=== PATIENT | female | born 1980 | race African-American/Black ===

== ENCOUNTER 2016-07-20 15:46 | Emergency (ER) | payer SELFPAY ==
--- NOTE | 2016-07-20 15:54 | ER Document Report ---
ED Medical Screen (RME) - General Stated Complaint: HEAVEY VAGINAL BLEEDING Time seen by provider: 15:50 Mode of Arrival: Ambulatory Information source: Patient Notes: 36-year-old female presents to ED for hemoglobin of 6.6 at the doctor with heavy vaginal bleeding. [facility] and possible blood transfusion. 3 vaginal bleeding started yesterday she states she's changing a pad about one an hour. She states that the heavy bleeding every month as been going on for couple years. She said days tried the Depo-Provera and it did not work. I have greeted and performed a rapid initial assessment of this patient. A comprehensive ED assessment and evaluation of the patient, analysis of test results and completion of medical decision making process will be conducted by an additional ED providers. TRAVEL OUTSIDE OF THE [place] IN LAST 30 DAYS: No - Related Data Allergies/Adverse Reactions: No Known Allergies Allergy (Verified 07/20/16 15:51) Past Medical History Past Surgical History: Reports: Hx Tonsillectomy, Hx Tubal Ligation - Immunizations Hx Diphtheria, Pertussis, Tetanus Vaccination: Yes
[2016-07-20 16:45] LABS: ABSOLUTE EOSINOPHILS # (AUTO) 0.2 10^3/uL (0.0-0.6); ABSOLUTE LYMPHOCYTES (AUTO) 1.5 10^3/uL (0.5-4.7); ABSOLUTE MONOCYTES (AUTO) 0.5 10^3/uL (0.1-1.4); ABSOLUTE NEUT (AUTO) 2.3 10^3/uL (1.7-8.2); BASOPHILS % (AUTO) 0.7 % (0-2); HEMATOCRIT 24.9 % (36.0-47.0); HGB HCT DIFFERENCE -2.4; LYMPHOCYTES % (AUTO) 33.4 % (13-45); RED BLOOD COUNT 3.94 10^6/uL (3.72-5.28); RED CELL DISTRIBUTION WIDTH 19.5 % (11.5-14.0); SEGMENTED NEUTROPHILS % (AUTO) 50.9 % (42-78); WHITE BLOOD COUNT 4.6 10^3/uL (4.0-10.5)
[2016-07-20 16:50] LABS: ALANINE AMINOTRANSFERASE 23 U/L (9-52); ALBUMIN 4.1 g/dL (3.5-5.0); ALKALINE PHOSPHATASE 77 U/L (38-126); ANION GAP 8 (5-19); ASPARTATE AMINO TRANSFERASE 19 U/L (14-36); BILIRUBIN,TOTAL 0.4 mg/dL (0.2-1.3); BLOOD UREA NITROGEN 13 mg/dL (7-20); CARBON DIOXIDE 24 mmol/L (22-30); CHLORIDE 110 mmol/L (98-107); CREATININE RESULT 0.66 mg/dL (0.52-1.25); GLUCOSE 92 mg/dL (75-110); SODIUM 142.4 mmol/L (137-145); TOTAL PROTEIN 7.5 g/dL (6.3-8.2)
[2016-07-20 17:00] LABS: HEMOGLOBIN 7.5 g/dL (12.0-15.5)
[2016-07-20 17:01] LABS: MEAN CORPUSCULAR VOLUME 63 fl (80-97)
[2016-07-20 17:06] LABS: FREE T3 3.43 pg/mL (2.77-5.27)
[2016-07-20 17:07] LABS: ANISOCYTOSIS 2+; HYPOCHROMASIA 1+; MICROCYTOSIS 3+; OVALOCYTES 1+; POIKILOCYTOSIS 1+; POLYCHROMASIA SLIGHT; SCHISTOCYTES 1+
[2016-07-20 17:08] LABS: ROULEAUX SLIGHT; TEAR DROP CELLS SLIGHT
[2016-07-20] MEDS ORDERED: ESTROGENS,CONJUGATED 25 MG VIAL IV ONE (17:19)
[2016-07-20 17:20] LABS: THYROID STIMULATING HORMONE 1.42 uIU/mL (0.47-4.68)
[2016-07-20 17:39] LABS: PROTHROMBIN TIME 13.3 SEC (11.4-15.4)
[2016-07-20] MEDS ORDERED: NORMAL SALINE 1000 ML 1,000 ML IV ONE (18:02)
--- NOTE | 2016-07-20 18:30 | ER Document Report ---
ED General - General Chief Complaint: Vaginal Bleeding Stated Complaint: VAGINAL BLEEDING Time seen by provider: 17:00 Mode of Arrival: Ambulatory Information source: Patient Notes: 36-year-old female with long history of heavy vaginal bleeding with her periods. Patient is been followed by Dr. Murdock of [employer] [facility] [facility] for this and because of typically bad episode beginning last night was seen in the office today. Hemoglobin at office was 6.6 but staff there are concerns that might be not be accurate. She was referred to the emergency department further evaluation and recheck of hemoglobin with further treatment inpatient versus outpatient to be determined by workup. Dr. Murdock requests CBC, coags, type and screen, TSH, CMP, and 20 mg of IV Premarin patient reports she has not passed out does have left lower quadrant abdominal cramping. Dr. Murdock reports she may have palpated a fibroid on pelvic exam the office today and did perform Pap smear. Patient denies nausea, vomiting, fever, chills, cough, shortness breath, numbness or focal weakness to extremities, hematemesis, hematochezia, or melena. Physical Exam: General: Alert, appears well. HEENT: Normocephalic. Atraumatic. PERRLA. Extraocular movements intact. Oropharynx clear. Neck: Supple. Non-tender. Respiratory: No respiratory distress. Clear and equal breath sounds bilaterally. Cardiovascular: Regular rate and rhythm. Abdominal: Normal Inspection. Soft, non-tender. No distension. Normal Bowel Sounds. Back: Non-tender. No deformity or step off. 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 Normal Mood. Skin: Warm. Dry. Normal color. TRAVEL OUTSIDE OF THE [place] IN LAST 30 DAYS: No - Related Data Allergies/Adverse Reactions: No Known Allergies Allergy (Verified 07/20/16 15:51) Past Medical History - General Information source: Patient - Social History Smoking Status: Never Smoker Chew tobacco use (# tins/day): No Frequency of alcohol use: Occasional Drug Abuse: None Family History: Reviewed & Not Pertinent Patient has suicidal ideation: No Patient has homicidal ideation: No Renal/ Medical History: Denies: Hx Peritoneal Dialysis Past Surgical History: Reports: Hx Tonsillectomy, Hx Tubal Ligation - Immunizations Hx Diphtheria, Pertussis, Tetanus Vaccination: Yes Review of Systems - Review of Systems Constitutional: denies: Chills, Fever EENT: denies: Ear pain, Throat pain Cardiovascular: denies: Chest pain, Dyspnea, Syncope Respiratory: denies: Cough, Short of breath Gastrointestinal: See HPI. denies: Vomiting Genitourinary: denies: Burning, Dysuria Female Genitourinary: See HPI Musculoskeletal: denies: Back pain Skin: denies: Rash Hematologic/Lymphatic: denies: Swollen glands Neurological/Psychological: denies: Weakness, Numbness Physical Exam - Vital signs Vitals: Temp Pulse Resp BP Pulse Ox 98.4 F 90 14 123/80 100 07/20/16 15:50 07/20/16 15:50 07/20/16 15:50 07/20/16 15:50 07/20/16 15:50 Course - Re-evaluation Re-evalutation: 07/20/16 18:29 Discussed laboratory workup with Dr. Murdock. She requests the patient have pelvic ultrasound obtained here to further evaluate for fibroids but she and I agree the patient doesn't require admission at this point. He requests patient be discharged on Ortho-Cyclen one daily and [id number] iron supplements with follow-up at the office. This patient had a pelvic exam just performed by her [employer] at the office prior to arrival here that was not repeated. 07/20/16 20:39 Reevaluation shows patient to be feeling well. Ultrasound does show uterine fibroid. Patient we discharged as planned - Vital Signs Vital signs: Temp Pulse Resp BP Pulse Ox 98.4 F 90 14 123/80 100 07/20/16 15:50 07/20/16 15:50 07/20/16 15:50 07/20/16 15:50 07/20/16 15:50 - Laboratory Result Diagrams: 07/20/16 16:00 07/20/16 16:00 Laboratory results interpreted by me: 07/20/16 07/20/16 16:00 16:00 Hgb 7.5 L Hct 24.9 L MCV 63 L MCH 19.0 L MCHC 30.0 L RDW 19.5 H Chloride 110 H - Diagnostic Test Radiology reviewed: Reports reviewed Discharge - Discharge Clinical Impression: Menorrhagia Qualifiers: Menorrahagia type: with regular cycle Qualified Code(s): N92.0 - Excessive and frequent menstruation with regular cycle Uterine fibroid Qualifiers: Uterine leiomyoma location: unspecified location Qualified Code(s): D25.9 - Leiomyoma of uterus, unspecified Condition: Stable Disposition: HOME, SELF-CARE Additional Instructions: Menorrhagia You are having severe bleeding from the uterus. We call this menorrhagia. It is most often caused by a hormone imbalance. The lining of the uterus grows too thick, then comes sloughs off with severe bleeding. There's often cramping and passage of clots. Sometimes menorrhagia is caused by benign muscle tumors in the uterus, called fibroids. There's no evidence of miscarriage or tubal . Menorrhagia often has no clear cause. But it's especially common at times when the normal menstrual cycle is disturbed -- whether by recent , use of hormones, or impending menopause. Some medical problems, such as obesity , stress, or thyroid problems make menorrhagia more likely. In many cases, the menstrual cycle will return to normal without treatment. Antiinflammatory pain medicine, like ibuprofen, can decrease cramping. Where the bleeding is significant, high-dose estrogen will usually stop the bleeding within a day of two. A cycle or two of hormones ( control pills) can help restore the uterus to normal. In some patients where bleeding is severe or resistant to treatment, a D&C is required. A endometrial biopsy (a sample of the inside of the uterus) may be recommended for some older women. This would be done by a gynecology specialist. Treatment for anemia may be required if bleeding is severe. You should rest and avoid intercourse until the bleeding is controlled. Call the doctor or return for re-examination if you feel faint, have increasing pain, or have a major increase in the amount of bleeding.Fibroids Fibroids are benign growths in the uterus. They can cause enlargement of the uterus, irregular bleeding, sever bleeding with periods, and abdominal pain. Anemia may result if periods are heavy. Fibroids tend to grow until menopause, then slwly shrink. If fibroids cause severe symptoms, they can be treated surgically. Call or return if vaginal bleeding or pain becomes severe. He'll be prescribed oral contraceptives which may help limit your vaginal bleeding. There also prescribed iron pills which may assist with improving her blood counts Prescriptions: Iron 18 mg PO DAILY #30 tablet Norgestimate-Ethinyl Estradiol [Ortho-Cyclen] 1 each PO DAILY #30 tablet Referrals: RUSSELL MANCILLA MD [Primary Care Provider] - Follow up in 3-5 days
[2016-07-20 21:18] VITALS: BP 107/67
== END 2016-07-20 21:15 | disposition home or self-care (01) ==
LOC: ER 15:46
DX: N92.0 Excessive and frequent menstruation with regular cycle (principal); D25.9 Leiomyoma of uterus, unspecified; R10.32 Left lower quadrant pain; Z98.51 Tubal ligation status
CPT/HCPCS: 99284; 96361; 96374; 86900; 86901; 36415; 84439; 86850; 84443; 84703; 85025; 85610; 85730; 80053; 84481; 76830; J1410; J7030

== ENCOUNTER 2016-10-12 22:43 | Emergency (ER) | payer SELFPAY ==
[2016-10-12 23:41] LABS: ABSOLUTE EOSINOPHILS # (AUTO) 0.3 10^3/uL (0.0-0.6); ABSOLUTE LYMPHOCYTES (AUTO) 1.8 10^3/uL (0.5-4.7); ABSOLUTE MONOCYTES (AUTO) 0.3 10^3/uL (0.1-1.4); ABSOLUTE NEUT (AUTO) 2.8 10^3/uL (1.7-8.2); BASOPHILS % (AUTO) 0.5 % (0-2); EOSINOPHILS % (AUTO) 5.6 % (0-6); HEMATOCRIT 34.4 % (36.0-47.0); HEMOGLOBIN 10.6 g/dL (12.0-15.5); HGB HCT DIFFERENCE -2.6; LYMPHOCYTES % (AUTO) 34.6 % (13-45); MEAN CORPUSCULAR HEMOGLOBIN 23.1 pg (27.0-33.4); MEAN CORPUSCULAR HGB CONC 30.9 g/dL (32.0-36.0); MEAN CORPUSCULAR VOLUME 75 fl (80-97); MONOCYTES % (AUTO) 6.2 % (3-13); RED BLOOD COUNT 4.61 10^6/uL (3.72-5.28); RED CELL DISTRIBUTION WIDTH 26.6 % (11.5-14.0); SEGMENTED NEUTROPHILS % (AUTO) 53.1 % (42-78); WHITE BLOOD COUNT 5.3 10^3/uL (4.0-10.5)
--- NOTE | 2016-10-12 23:43 | ER Document Report ---
ED General - General Chief Complaint: Vaginal Bleeding Stated Complaint: VAGINAL BLEEDING Time Seen by Provider: 10/12/16 23:12 Notes: Patient is a 36-year-old female with past medical history of dysfunctional uterine bleeding, currently following with [facility] [facility] regarding these concerns who presents with 3 days of heavy vaginal bleeding. Describes that she has bleeding for at least 3 pads an hour for the last 12-24 hours. She is continuing to take her oral control pills without improvement. Nothing worsens her symptoms. She does have associated mild, dull, cramping pain to her lower abdomen. Denies any fever, nausea or vomiting. She has not been to her [facility] [facility] regarding these concerns. Denies any syncope, lightheadedness, or shortness of breath. TRAVEL OUTSIDE OF THE [place] IN LAST 30 DAYS: No - Related Data Allergies/Adverse Reactions: No Known Allergies Allergy (Verified 07/20/16 15:51) Past Medical History - General Information source: Patient - Social History Smoking Status: Never Smoker Frequency of alcohol use: None Drug Abuse: None Lives with: Spouse/Significant other Family History: Reviewed & Not Pertinent Patient has suicidal ideation: No Patient has homicidal ideation: No Renal/ Medical History: Denies: Hx Peritoneal Dialysis Past Surgical History: Reports: Hx Tonsillectomy, Hx Tubal Ligation - Immunizations Hx Diphtheria, Pertussis, Tetanus Vaccination: Yes Review of Systems - Review of Systems Notes: Constitutional: Negative for fever. HENT: Negative for sore throat. Eyes: Negative for visual changes. Cardiovascular: Negative for chest pain. Respiratory: Negative for shortness of breath. Gastrointestinal: Negative for abdominal pain, vomiting or diarrhea. Genitourinary: Positive for vaginal bleeding Musculoskeletal: Negative for back pain. Skin: Negative for rash. Neurological: Negative for headaches, weakness or numbness. 10 point ROS negative except as marked above and in HPI. Physical Exam - Vital signs Vitals: Temp Pulse Resp BP Pulse Ox 97.9 F 89 16 132/81 H 98 10/12/16 22:50 10/12/16 22:50 10/12/16 22:50 10/12/16 22:50 10/12/16 22:50 Interpretation: Normal Notes: PHYSICAL EXAMINATION: GENERAL: Well-appearing, well-nourished and in no acute distress. HEAD: Atraumatic, normocephalic. EYES: Pupils equal round and reactive to light, extraocular movements intact, sclera anicteric, conjunctiva are normal. ENT: nares patent, oropharynx clear without exudates. Moist mucous membranes. NECK: Normal range of motion, supple without lymphadenopathy LUNGS: Breath sounds clear to auscultation bilaterally and equal. No wheezes rales or rhonchi. HEART: Regular rate and rhythm without murmurs ABDOMEN: Soft, nontender, normoactive bowel sounds. No guarding, no rebound. No masses appreciated. : Moderate active vaginal bleeding. No cervical motion tenderness. No adnexal tenderness. EXTREMITIES: Normal range of motion, no pitting or edema. No cyanosis. NEUROLOGICAL: No focal neurological deficits. Moves all extremities spontaneously and on command. PSYCH: Normal mood, normal affect. SKIN: Warm, Dry, normal turgor, no rashes or lesions noted. Course - Re-evaluation Re-evalutation: 10/12/16 23:42 Presentation is most consistent with dysfunctional uterine bleeding and otherwise well-appearing patient. Hemoglobin, type and screen, test. No tachycardia or hypotension. Will proceed with pelvic exam to assess degree of active bleeding at this time. 10/13/16 01:15 Pelvic exam does show a moderate level of bleeding but not an active hemorrhage. Hemoglobin is at 10.6 today far improved from when she was here in July. She has remained without tachycardia or hypotension. I have discussed her case with Dr. Pozo the [employer] on-call who is in agreement with giving a 25 mg dose of IV Premarin and then discharge with office follow-up in the morning. At this time will discharge with return precautions and follow-up recommendations. Verbal discharge instructions given a the bedside and opportunity for questions given. Medication warnings reviewed. Patient is in agreement with this plan and has verbalized understanding of return precautions and the need for primary care follow-up in the next 24-72 hours. - Vital Signs Vital signs: Temp Pulse Resp BP Pulse Ox 97.7 F 69 16 100/65 99 10/13/16 01:53 10/13/16 01:53 10/13/16 01:53 10/13/16 01:53 10/13/16 01:53 - Laboratory Result Diagrams: 10/12/16 23:23 Laboratory results interpreted by me: 10/12/16 23:23 Hgb 10.6 L Hct 34.4 L MCV 75 L MCH 23.1 L MCHC 30.9 L RDW 26.6 H Discharge - Discharge Clinical Impression: Dysfunctional uterine bleeding Condition: Good Disposition: HOME, SELF-CARE Additional Instructions: You were seen today for dysfunctional uterine bleeding. Follow-up in the OB/ [facility] [employer] office in the morning as they will be expecting you. Return immediately if you worsening pain, you began bleeding through more than 2 pads per hour for more than 3 hours, you pass out, have persistent vomiting, develop a fever greater than 100.4F, or any other symptoms that are concerning to you. Forms: Return to Work
[2016-10-13 00:16] LABS: ANISOCYTOSIS 3+; OVALOCYTES SLIGHT; POIKILOCYTOSIS SLIGHT
[2016-10-13] MEDS ORDERED: ESTROGENS,CONJUGATED 25 MG VIAL IV ONE (01:14)
[2016-10-13] MEDS ORDERED: ESTROGENS,CONJUGATED 25 MG VIAL ONE (01:37)
[2016-10-13 01:54] VITALS: BP 100/65
== END 2016-10-13 01:51 | disposition home or self-care (01) ==
LOC: ER 22:43
DX: N93.8 Other specified abnormal uterine and vaginal bleeding (principal); Z98.51 Tubal ligation status
CPT/HCPCS: 99284; 96374; 86900; 86901; 36415; 86850; 84703; 85025; J1410